=== PATIENT | male | born 1980 | race Caucasian/White ===

== ENCOUNTER 2021-04-28 02:56 | Emergency (ER) | payer OTHER ==
[2021-04-28] MEDS ORDERED: AUGMENTIN 875-1 EACH PO (04:48)
== END 2021-04-28 05:00 | disposition home or self-care (01) ==
LOC: ER1 02:56
DX: S02.40CA Maxillary fracture, right side, initial encounter for closed fracture (principal); F17.210 Nicotine dependence, cigarettes, uncomplicated; W22.8XXA Striking against or struck by other objects, initial encounter
CPT/HCPCS: 70486; 96372; 99283; J1885